=== PATIENT | female | born 1980 | race Caucasian/White ===

== ENCOUNTER 2017-10-13 04:00 | Inpatient (IN) | payer OTHER ==
[2017-10-13] MEDS: LACTATED RINGER'S 1,000 ML IV ×3 (04:40→16:36)
[2017-10-13] MEDS ORDERED: LACTATED RINGER'S 1,000 ML IV (06:15)
[2017-10-13 06:26] LABS: ADD MAN DIFF? NO
[2017-10-13] MEDS ORDERED: METHYLERGONOVINE 0.2 MG INJ IM ×2 (06:30→07:30)
[2017-10-13] MEDS ORDERED: MISOPROSTOL 200 MCG TAB PR ×2 (06:30→07:30)
[2017-10-13] MEDS ORDERED: OXYTOCIN 30 UNITS/LR 500 ML IV ×2 (06:30→07:30)
[2017-10-13] MEDS ORDERED: CARBOPROST 250 MCG INJ IM ×2 (06:30→07:30)
[2017-10-13 06:32] LABS: BASOPHILS % 0.4 % (0.0-2.0); EOSINOPHILS # 0.2 10^3/ul (0.0-0.5); HEMATOCRIT 36.3 % (37.0-47.0); HEMOGLOBIN 11.8 g/dl (12.0-16.0); LYMPHOCYTES # 1.7 10^3/ul (0.8-2.9); LYMPHOCYTES % 21.6 % (15.0-51.0); MEAN CORPUSCULAR HEMOGLOBIN 28.9 pg (29.0-33.0); MEAN CORPUSCULAR HGB CONC 32.5 g/dl (32.0-37.0); MEAN PLATELET VOLUME 10.1 fl (7.4-10.4); MONOCYTE # 0.6 10^3/ul (0.3-0.9); NEUTROPHIL # 5.4 10^3/ul (1.6-7.5); NEUTROPHILS % 67.1 % (39.0-77.0); PLATELET COUNT 179 10^3/UL (140-415); RED BLOOD COUNT 4.08 10^6/ul (4.20-5.40); RED CELL DISTRIBUTION WIDTH 15.5 % (11.5-14.5)
[2017-10-13] MEDS ORDERED: OXYTOCIN 30 UNITS/LR 500 ML BAG IV (07:00)
[2017-10-13] MEDS ORDERED: ROCURONIUM 50 MG INJ (07:00)
[2017-10-13] MEDS ORDERED: LIDOCAINE 2% (SDV) 5 ML INJ (07:00)
[2017-10-13] MEDS ORDERED: SUCCINYLCHOLINE CHLORIDE 100 MG/5 ML SYG IV (07:00)
[2017-10-13 07:03] LABS: INR 0.87; PROTIME 11.9 Sec (11.9-14.9); PT RATIO 0.9
[2017-10-13 07:04] LABS: PARTIAL THROMBOPLASTIN TIME 27.2 Sec (25.0-35.0)
[2017-10-13] MEDS: CEFAZOLIN 1 GM/50 ML (PMX) 50 ML IV ×3 (07:30→23:03)
[2017-10-13] MEDS ORDERED: KETOROLAC 30 MG INJ IM (07:30)
[2017-10-13 07:38] LABS: HEPATITIS B SURFACE ANTIGEN NEGATIVE (NEGATIVE)
[2017-10-13] MEDS ORDERED: ONDANSETRON 4 MG INJ (07:58)
[2017-10-13] MEDS ORDERED: CITRIC ACID/SODIUM CITRATE 15 ML CUP (07:59)
[2017-10-13] MEDS ORDERED: METOCLOPRAMIDE 10 MG INJ (07:59)
[2017-10-13] MEDS ORDERED: FAMOTIDINE 20 MG INJ (08:00)
[2017-10-13] MEDS: CITRIC ACID/SODIUM CITRATE 15 ML CUP PO (08:03)
[2017-10-13] MEDS: METOCLOPRAMIDE 10 MG INJ IV (08:04)
[2017-10-13] MEDS: FAMOTIDINE 20 MG INJ IV (08:05)
[2017-10-13] MEDS: ONDANSETRON 4 MG INJ IV (08:07)
[2017-10-13] MEDS ORDERED: MIDAZOLAM 1 MG/ML 2 ML INJ (08:21)
[2017-10-13] MEDS ORDERED: FENTAnyl 50 MCG/ML VIAL (08:21)
[2017-10-13] MEDS ORDERED: PROPOFOL 20 ML (08:21)
[2017-10-13] MEDS ORDERED: PHENYLephrine (100 MCG/ML) 5ML SYG (08:22)
[2017-10-13] MEDS ORDERED: OXYTOCIN 10 UNIT INJ (08:27)
[2017-10-13] MEDS ORDERED: SUGAMMADEX SODIUM 200 MG/2 ML VIAL IV (09:19)
[2017-10-13] MEDS: OXYTOCIN 30 UNITS/LR 500 ML IV ×2 (09:20→10:26)
[2017-10-13] MEDS ORDERED: HYDROmorphONE 2 MG/ML SYG (09:20)
[2017-10-13] MEDS ORDERED: DIPHENHYDRAMINE 50 MG INJ IV (10:00)
[2017-10-13] MEDS ORDERED: KETOROLAC 30 MG INJ IV ×2 (10:00)
[2017-10-13] MEDS ORDERED: HYDROmorphONE 0.5 MG/0.5 ML SYG IV ×2 (10:00)
[2017-10-13] MEDS ORDERED: ONDANSETRON 4 MG INJ IV ×2 (10:00)
[2017-10-13] MEDS ORDERED: ZOLPIDEM 5 MG TAB PO (10:00)
[2017-10-13] MEDS ORDERED: FENTAnyl 50 MCG/ML VIAL IV ×2 (10:00)
[2017-10-13] MEDS ORDERED: IPRATROPIUM (NEB) 0.5 MG/2.5 ML AMP HHN (10:00)
[2017-10-13] MEDS ORDERED: MEPERIDINE 25 MG INJ IV (10:00)
[2017-10-13] MEDS ORDERED: HYDROmorphONE (0.2 MG/ML) 10ML SYG IV ×3 (10:00)
[2017-10-13] MEDS ORDERED: NALOXONE (0.4 MG/ML) INJ IV (10:00)
[2017-10-13] MEDS: CEFAZOLIN 2 GM/50 ML (PMX) 50 ML IV (10:02)
[2017-10-13] MEDS ORDERED: METOCLOPRAMIDE 10 MG INJ IM (10:30)
[2017-10-13] MEDS: HYDROmorphONE 0.2 MG/ML PCA IV (10:48)
[2017-10-13 20:08] LABS: RAPID PLASMA REAGIN NONREACTIVE (NR)
[2017-10-14] MEDS: LACTATED RINGER'S 1,000 ML IV (01:40)
[2017-10-14] MEDS: CEFAZOLIN 1 GM/50 ML (PMX) 50 ML IVPB (06:51)
[2017-10-14 08:12] LABS: ADD MAN DIFF? NO
[2017-10-14 08:16] LABS: BASOPHILS % 0.3 % (0.0-2.0); EOSINOPHILS # 0.2 10^3/ul (0.0-0.5); EOSINOPHILS % 1.9 % (0.0-7.0); HEMATOCRIT 31.7 % (37.0-47.0); LYMPHOCYTES # 1.1 10^3/ul (0.8-2.9); LYMPHOCYTES % 10.4 % (15.0-51.0); MEAN CORPUSCULAR HEMOGLOBIN 28.3 pg (29.0-33.0); MEAN CORPUSCULAR HGB CONC 31.5 g/dl (32.0-37.0); MEAN CORPUSCULAR VOLUME 89.8 fl (82.0-101.0); MEAN PLATELET VOLUME 9.6 fl (7.4-10.4); MONOCYTE # 0.5 10^3/ul (0.3-0.9); MONOCYTES % 4.4 % (0.0-11.0); NEUTROPHILS % 82.5 % (39.0-77.0); PLATELET COUNT 161 10^3/UL (140-415); RED BLOOD COUNT 3.53 10^6/ul (4.20-5.40); RED CELL DISTRIBUTION WIDTH 15.9 % (11.5-14.5)
[2017-10-14 08:16] LABS: WHITE BLOOD COUNT 10.9 10^3/ul (4.8-10.8)
[2017-10-14] MEDS: HYDROCODONE/APAP (5/325) TAB PO ×3 (11:13→23:20)
[2017-10-14] MEDS: LANOLIN 7 GM TUBE TOP (18:42)
[2017-10-15] MEDS: HYDROCODONE/APAP (5/325) TAB PO ×4 (06:20→22:31)
[2017-10-16] MEDS: HYDROCODONE/APAP (5/325) TAB PO (11:47)
[2017-10-16] MEDS ORDERED: IBUPROFEN 600 MG TAB PO (12:00)
== END 2017-10-16 13:30 | disposition home or self-care (01) | DRG 766 ==
LOC: L-D 04:00 → PP1 13:23
PROVIDERS: Obstetrics & Gynecology
PROC: 10D00Z1 Extraction of Products of Conception, Low, Open Approach (ICD-10-PCS; principal; 2017-10-13 09:00)
DX: O99.89 Other specified diseases and conditions complicating pregnancy, childbirth and the puerperium (principal); Z3A.37 37 weeks gestation of pregnancy; Z37.0 Single live birth; Z98.1 Arthrodesis status
CPT/HCPCS: 85025; 85610; 85730; 86592; 86850; 86900; 86901; 87340; 88307; 99464